=== PATIENT | female | born 1950 | race Caucasian/White ===

== ENCOUNTER 2018-02-28 23:23 | Observation (INO) ==
[2018-02-28] MEDS ORDERED: Famotidine PF Inj 20 MG/2 ML Vial IV.PUSH ONE (23:30)
[2018-02-28] MEDS ORDERED: Dexamethasone Inj 20 MG/5 ML Vial IV.PUSH ONE (23:30)
[2018-02-28] MEDS ORDERED: RESP: Racemic Epinephrine 2.25% 0.5 ML Neb NEB PRN (23:31)
--- NOTE | 2018-02-28 23:36 | ED ---
HPI General Chief complaint: Allergic Reaction Stated complaint: Tongue edema x 2 hrs Time Seen by Provider: 02/28/18 23:29 Source: patient Mode of arrival: ambulatory Limitations: no limitations History of Present Illness HPI narrative: Patient is a 67-year-old female who is having a tongue swelling episodes mostly the left side of her tongue after making a sauce at home. Happened to her once long ago. She does not remember what it was at that time. She said it came down with Benadryl. She took 225 mg Benadryl herself prior to coming to the ER. In the ER she is speaking full sentences did not appear to be in any respiratory distress however her tongue is swollen significantly on the left posterior pharynx uvula completely normal and there is no pallor or edema to the posterior airway immediately she is getting epinephrine 1 and 1000 3 mg as well as Decadron 10 IV racemic epi neb and she will also be getting Pepcid close evaluation whether she needs to be intubated will be closely observed will be admitted to the ICU possibly after intubation or possibly if her airway swelling reverses with medication Onset (ago): hour(s) (2) Related Data Home Medications Medication Instructions Recorded Confirmed alprazolam [Xanax] 0.25 mg PO BID PRN 01/19/18 03/01/18 sertraline 50 mg PO DAILY 01/19/18 03/01/18 Previous Rx's Medication Instructions Recorded amlodipine 5 mg PO DAILY #30 tab 03/02/18 metformin 500 mg PO BID #60 tab 03/02/18 Allergies Allergy/AdvReac Type Severity Reaction Status Date / Time amoxicillin [From Augmentin] Allergy Rash Verified 02/28/18 23:31 clavulanic acid Allergy Rash Verified 02/28/18 23:31 [From Augmentin] Review of Systems ROS: all other systems reviewed are negative [facility] Social History Social History Substance History: No History of Abuse Second Hand Smoke Exposure: Yes Smoking Status: Current every day smoker Tobacco Type: Cigarettes How Often Do You Have a Drink Containing Alcohol: Never Recent Travel in [facility] within the Last 8 Weeks: No Recent Out of Country Travel within the Last 8 Weeks: No Exam Narrative Exam Narrative: GENERAL: no apparent distress SKIN: Warm and dry. HEAD: Atraumatic. Normocephalic. EYES: Pupils equal and round. No scleral icterus. No injection or drainage. ENT: pt has left sided tongue swelling severe but posterior pharynx is completely normal no uvula swelling , no harseness no stridor on ascultation ( pt on lisinopril) NECK: Trachea midline. No JVD. CARDIOVASCULAR: Regular rate and rhythm. RESPIRATORY: No accessory muscle use. Clear to auscultation. Breath sounds equal bilaterally. GASTROINTESTINAL: Abdomen soft, non-tender, nondistended. Hepatic and splenic margins not palpable. MUSCULOSKELETAL: Extremities without clubbing, cyanosis, or edema. No obvious deformities. NEUROLOGICAL: Awake and alert. No obvious cranial nerve deficits. Motor grossly within normal limits. Five out of 5 muscle strength in the arms and legs. Normal speech. PSYCHIATRIC: Appropriate mood and affect; insight and judgment normal. Course Initial Documented Vital Signs Temperature 98.2 F 02/28/18 23:33 Pulse Rate 74 02/28/18 23:33 Respiratory Rate 18 02/28/18 23:33 Blood Pressure 147/64 H 02/28/18 23:33 Pulse Oximetry 97 02/28/18 23:33 Last Documented Vital Signs Temperature 98.1 F 03/02/18 07:00 Pulse Rate 71 03/02/18 08:27 Respiratory Rate 18 03/02/18 08:27 Blood Pressure 123/79 03/02/18 07:00 Pulse Oximetry 96 03/02/18 08:27 Critical Care Time Critical Care Time: Yes Total Critical Care Time: 30 Attestation: pt closely monitored airway and constant re-eval of need for possible intubation , pt tongue severely swollen but q 15 minutes rechecks over 4 hrs and epi , IM and aerosol and solumedrol and pepecid and constant airway monitoring , eventually after 3 hrs tongue swelling receding and posterior pharynx never became swollen , Medical Decision Making MDM Narrative Medical decision making narrative: Patient was closely observed epi Solu-Medrol racemic epi Pepcid Benadryl given immediately evaluation for immediate intubation. Recurrent repeat exams of the posterior pharynx show no signs of uvula swelling no signs of voice change no signs of need for emergent airway patient's tongue is swollen mostly on the left constant reevaluation over 3 hours until the epi Solu-Medrol reverse the swelling and she is safe to be admitted without intubation at this time to the ICU for possible need for future intubation if the swelling reverses it starts to increase again at this time it is decreased and she is safe for admission Medical Screen Exam Complete: Yes Emergency Medical Condition: Yes Differential Diagnosis Differential Diagnosis: allergic reaction to unknown source , vs analphaxis vs tongue local edema swelling , vs vocal chord edema vs airway inflammation . other reaction to allergen or viraus or bacteria Lab Data Result diagrams: 03/02/18 04:31 03/02/18 04:31 Lab Results 03/01/18 03/01/18 03/01/18 Range/Units 05:58 08:40 08:40 CBC w Diff Auto diff final WBC 8.6 (4.0-11.0) th/mm3 RBC 4.37 (4.00-5.30) mil/mm3 Hgb 13.9 (11.6-15.3) gm/dL Hct 40.5 (35.0-46.0) % MCV 92.6 (80.0-100.0) fL MCH 31.9 (27.0-34.0) pg MCHC 34.4 (32.0-36.0) % RDW 12.6 (11.6-17.2) % Plt Count 299 (150-450) th/mm3 MPV 8.1 (7.0-11.0) fL Neut % (Auto) 89.4 H (16.0-70.0) % Lymph % (Auto) 9.7 (9.0-44.0) % [place] % (Auto) 0.3 (0.0-8.0) % Eos % (Auto) 0.0 (0.0-4.0) % Baso % (Auto) 0.6 (0.0-2.0) % Neut # (Auto) 7.7 (1.8-7.7) th/mm3 Lymph # (Auto) 0.8 L (1.0-4.8) th/mm3 [place] # (Auto) 0.0 (0.0-0.9) th/mm3 Eos # (Auto) 0.0 (0.0-0.4) th/mm3 Baso # (Auto) 0.1 (0.0-0.2) th/mm3 WBC Differential . Differential Comment . Sodium 136 (136-145) meq/L Potassium 4.4 (3.5-5.1) meq/L Chloride 101 (98-107) meq/L Carbon Dioxide 26.9 (21.0-32.0) meq/L Anion Gap 8 (5-15) meq/L BUN 22 H (7-18) mg/dL Creatinine 1.10 H (0.50-1.00) mg/dL Estimated GFR 50 L (>89) mL/min POC Glucose 283 H (68-110) mg/dl Random Glucose 303 H (74-106) mg/dL Calcium 8.6 (8.5-10.1) mg/dL Phosphorus 3.1 (2.5-4.9) mg/dL Magnesium 1.8 (1.5-2.5) mg/dL Nasal Screen MRSA (PCR) (Negative) 03/01/18 03/01/18 03/01/18 Range/Units 10:35 11:35 17:17 CBC w Diff WBC (4.0-11.0) th/mm3 RBC (4.00-5.30) mil/mm3 Hgb (11.6-15.3) gm/dL Hct (35.0-46.0) % MCV (80.0-100.0) fL MCH (27.0-34.0) pg MCHC (32.0-36.0) % RDW (11.6-17.2) % Plt Count (150-450) th/mm3 MPV (7.0-11.0) fL Neut % (Auto) (16.0-70.0) % Lymph % (Auto) (9.0-44.0) % [place] % (Auto) (0.0-8.0) % Eos % (Auto) (0.0-4.0) % Baso % (Auto) (0.0-2.0) % Neut # (Auto) (1.8-7.7) th/mm3 Lymph # (Auto) (1.0-4.8) th/mm3 [place] # (Auto) (0.0-0.9) th/mm3 Eos # (Auto) (0.0-0.4) th/mm3 Baso # (Auto) (0.0-0.2) th/mm3 WBC Differential Differential Comment Sodium (136-145) meq/L Potassium (3.5-5.1) meq/L Chloride (98-107) meq/L Carbon Dioxide (21.0-32.0) meq/L Anion Gap (5-15) meq/L BUN (7-18) mg/dL Creatinine (0.50-1.00) mg/dL Estimated GFR (>89) mL/min POC Glucose 263 H 402 H (68-110) mg/dl Random Glucose (74-106) mg/dL Calcium (8.5-10.1) mg/dL Phosphorus (2.5-4.9) mg/dL Magnesium (1.5-2.5) mg/dL Nasal Screen MRSA (PCR) Not detected (Negative) 03/02/18 03/02/18 03/02/18 Range/Units 00:06 04:31 04:31 CBC w Diff WBC 13.7 H D (4.0-11.0) th/mm3 RBC 4.10 (4.00-5.30) mil/mm3 Hgb 13.2 (11.6-15.3) gm/dL Hct 38.6 (35.0-46.0) % MCV 94.3 (80.0-100.0) fL MCH 32.2 (27.0-34.0) pg MCHC 34.1 (32.0-36.0) % RDW 13.4 (11.6-17.2) % Plt Count 269 (150-450) th/mm3 MPV 8.6 (7.0-11.0) fL Neut % (Auto) 88.3 H (16.0-70.0) % Lymph % (Auto) 9.1 (9.0-44.0) % [place] % (Auto) 2.5 (0.0-8.0) % Eos % (Auto) 0.0 (0.0-4.0) % Baso % (Auto) 0.1 (0.0-2.0) % Neut # (Auto) 12.1 H (1.8-7.7) th/mm3 Lymph # (Auto) 1.3 (1.0-4.8) th/mm3 [place] # (Auto) 0.3 (0.0-0.9) th/mm3 Eos # (Auto) 0.0 (0.0-0.4) th/mm3 Baso # (Auto) 0.0 (0.0-0.2) th/mm3 WBC Differential . Differential Comment Auto diff final Sodium 138 (136-145) meq/L Potassium 3.9 (3.5-5.1) meq/L Chloride 103 (98-107) meq/L Carbon Dioxide 26.0 (21.0-32.0) meq/L Anion Gap 9 (5-15) meq/L BUN 17 (7-18) mg/dL Creatinine 0.92 (0.50-1.00) mg/dL Estimated GFR 61 L (>89) mL/min POC Glucose 244 H (68-110) mg/dl Random Glucose 254 H (74-106) mg/dL Calcium 8.9 (8.5-10.1) mg/dL Phosphorus 3.0 (2.5-4.9) mg/dL Magnesium 2.0 (1.5-2.5) mg/dL Nasal Screen MRSA (PCR) (Negative) 03/02/18 Range/Units 05:22 CBC w Diff WBC (4.0-11.0) th/mm3 RBC (4.00-5.30) mil/mm3 Hgb (11.6-15.3) gm/dL Hct (35.0-46.0) % MCV (80.0-100.0) fL MCH (27.0-34.0) pg MCHC (32.0-36.0) % RDW (11.6-17.2) % Plt Count (150-450) th/mm3 MPV (7.0-11.0) fL Neut % (Auto) (16.0-70.0) % Lymph % (Auto) (9.0-44.0) % [place] % (Auto) (0.0-8.0) % Eos % (Auto) (0.0-4.0) % Baso % (Auto) (0.0-2.0) % Neut # (Auto) (1.8-7.7) th/mm3 Lymph # (Auto) (1.0-4.8) th/mm3 [place] # (Auto) (0.0-0.9) th/mm3 Eos # (Auto) (0.0-0.4) th/mm3 Baso # (Auto) (0.0-0.2) th/mm3 WBC Differential Differential Comment Sodium (136-145) meq/L Potassium (3.5-5.1) meq/L Chloride (98-107) meq/L Carbon Dioxide (21.0-32.0) meq/L Anion Gap (5-15) meq/L BUN (7-18) mg/dL Creatinine (0.50-1.00) mg/dL Estimated GFR (>89) mL/min POC Glucose 249 H (68-110) mg/dl Random Glucose (74-106) mg/dL Calcium (8.5-10.1) mg/dL Phosphorus (2.5-4.9) mg/dL Magnesium (1.5-2.5) mg/dL Nasal Screen MRSA (PCR) (Negative) Discharge Plan Discharge Disposition Patient Disposition: 02 Transfer To [facility] [place] Discharge Condition Condition: Good Discharge Details Anticipated Discharge Date: 03/02/18 Physicians Team ED Provider: Jeromy Drummond Primary Care Provider: Tong Pimentel Attending Provider: Natalia Burk Status ED Status: Left Department Discharge Information Discharge Date/Time: 03/01/18 10:03
[2018-03-01] MEDS ORDERED: Dextrose 50% in Water 50 ML Vial IV.PUSH PRN (05:21)
[2018-03-01] MEDS ORDERED: Potassium Phosphate 500 MG Soluble Tablet PO PRN ×2 (05:21)
[2018-03-01] MEDS ORDERED: Potassium Chlor 40 mEq Premix 40 MEQ/100 ML PIGGYBACK IV.SIG PRN ×2 (05:21)
[2018-03-01] MEDS ORDERED: Magnesium Oxide 400 MG Tablet PO PRN (05:21)
[2018-03-01] MEDS ORDERED: Magnesium Sulfate Inj 4 GM in Sodium Chlor 0.9% Inj 92 ML IV.SIG PRN (05:21)
[2018-03-01] MEDS ORDERED: Potassium Phosphate Inj 30 MMOL in Sodium Chlor 0.9% Inj 250 ML IV.SIG PRN (05:21)
[2018-03-01] MEDS ORDERED: Sodium Phosphate Inj 30 MMOL in Sodium Chlor 0.9% Inj 250 ML IV.SIG PRN (05:21)
[2018-03-01] MEDS ORDERED: hydrALAZINE HCl Inj 20 MG/ML Vial IV.PUSH PRN (05:21)
[2018-03-01] MEDS ORDERED: Potassium Chlor 20 mEq Premix 20 MEQ/100 ML PIGGYBACK IV.SIG PRN ×2 (05:21)
[2018-03-01] MEDS ORDERED: Potassium Chloride 25 MEQ Effervescent Tablet PO PRN (05:21)
[2018-03-01] MEDS ORDERED: Magnesium Sulfate Inj 2 GM in Sodium Chlor 0.9% Inj 96 ML IV.SIG PRN (05:21)
[2018-03-01] MEDS ORDERED: Labetalol HCl Inj 100 MG/20 ML Vial IV.PUSH PRN (05:21)
[2018-03-01] MEDS: Enoxaparin Inj 60 MG/0.6 ML Syringe SQ SCH ×2 (05:49→09:18)
[2018-03-01] MEDS: Insulin NovoLIN Regular Correctional Sugar Inj SQ SCH ×3 (06:09→17:20)
[2018-03-01 08:51] LABS: Baso # (Auto) 0.1 th/mm3 (0.0-0.2); Baso % (Auto) 0.6 % (0.0-2.0); Hematocrit 40.5 % (35.0-46.0); Hemoglobin 13.9 gm/dL (11.6-15.3); Lymph # (Auto) 0.8 th/mm3 (1.0-4.8); Lymph % (Auto) 9.7 % (9.0-44.0); Mean Corpuscular HGB Conc 34.4 % (32.0-36.0); Mean Corpuscular Hemoglobin 31.9 pg (27.0-34.0); Mean Corpuscular Volume 92.6 fL (80.0-100.0); Mean Platelet Volume 8.1 fL (7.0-11.0); Mono % (Auto) 0.3 % (0.0-8.0); Neut # (Auto) 7.7 th/mm3 (1.8-7.7); Neut % (Auto) 89.4 % (16.0-70.0); Platelet Count 299 th/mm3 (150-450); Red Blood Count 4.37 mil/mm3 (4.00-5.30); Red Cell Distribution Width 12.6 % (11.6-17.2); White Blood Count 8.6 th/mm3 (4.0-11.0)
[2018-03-01 08:58] LABS: Potassium 4.4 meq/L (3.5-5.1)
[2018-03-01 09:01] LABS: Calcium 8.6 mg/dL (8.5-10.1)
[2018-03-01 09:02] LABS: Carbon Dioxide 26.9 meq/L (21.0-32.0); Magnesium 1.8 mg/dL (1.5-2.5)
[2018-03-01 09:05] LABS: Phosphorus 3.1 mg/dL (2.5-4.9)
[2018-03-01] MEDS: Famotidine PF Inj 20 MG/2 ML Vial IV.PUSH SCH ×2 (09:17→20:55)
--- NOTE | 2018-03-01 12:47 | P.HPCC ---
History of Present Illness Service: Critical care medicine Primary Care Physician: Tong Pimentel MD History of Present Illness: This is a 67-year-old female that was noted last evening to have left- sided tongue swelling. Per her report it occurred prior to her ingestion of her evening medications which included lisinopril, vitamin B complex and multivitamins. This is the first occurrence that was noted has never happened before patient states she has been on lisinopril for greater than 10 years. The patient recalls that she was making some type of tomato based sauce at home and after eating it she noted left-sided tongue swelling and went to the emergency room at [facility]. Her presentation to the emergency department she had no noted respiratory distress. The patient received H1, H2 blockers as well as epinephrine. After receipt of medications, critical care medicine was consulted for possible intubation and the patient was transferred to [facility]. - Diagnosis (1) Angioedema (2) Allergic angioedema (3) Tobacco abuse (4) HTN (hypertension) (5) Anxiety disorder (6) Migraine (7) Irritable bowel syndrome (IBS) Inpatient Certification: I certify that the inpatient services were ordered in accordance with Medicare regulations governing the order. This includes certification that hospital inpatient services are reasonable and necessary and in the case of services not specified as inpatient-only under 42 CFR 419.22(n), that they are appropriately provided as inpatient services in accordance to with the 2-midnight benchmark under 43 CFR 412.3(e) Estimated Total Length of Stay (Days): 3 Plans for Post Hospital Care: Not yet determined Review of Systems All other systems reviewed negative except as stated in [place] - History History Provided By: Patient - Medical History Medical History: Medical History (Last Reviewed 02/28/18 @ 23:35 by David Quezada RN) History of hypertension - Tobacco History Second Hand Smoke Exposure: Yes Tobacco Use In Past 30 Days: Yes Smoking Status: Current every day smoker Tobacco Type: Cigarettes - Alcohol History How Often Do You Have a Drink Containing Alcohol: Never - Substance Use History Substance History: No History of Abuse - Travel History Recent Travel in the [place] Within the Last 8 Weeks: No Recent Travel Out of the Country Within the Last 8 Weeks: No - Immunization History Tetanus Immunization: Unsure Medications and Allergies Active Medications: Active Medications Albuterol (Duoneb Neb (Prn)) 1 ampul NEB Q2HR NEB PRN PRN Reason: WHEEZING Albuterol (Duoneb Neb (Annabel)) 1 ampul NEB Q4HR NEB ANNABEL Last Admin: 03/01/18 07:15 Dose: 1 ampul Chlorhexidine Gluconate (Chlorhexidine 2% Cloth) 3 pack TOPICAL DAILY@0400 ANNABEL Stop: 03/07/18 03:59 Chlorhexidine Gluconate (Chlorhexidine 2% Cloth) 3 pack TOPICAL DAILY@0400 PRN PRN Reason: Extra cloth needed Stop: 03/07/18 03:59 Dexamethasone Sodium Phosphate (Decadron Inj) 4 mg IV.PUSH Q6HR ANNABEL Stop: 03/02/18 05:59 Last Admin: 03/01/18 11:48 Dose: 4 mg Dextrose (D50w Vial) 50 ml IV.PUSH UNSCH PRN PRN Reason: PER HYPOGLYCEMIA PROTOCOL Enoxaparin Sodium (Lovenox Inj) 40 mg SQ DAILY [facility] Last Admin: 03/01/18 09:18 Dose: 40 mg Epinephrine (Racepinephrine 2.25% Neb) 0.5 ml NEB Q3HR NEB PRN PRN Reason: ALLERGIC REACTION Last Admin: 02/28/18 23:37 Dose: 0.5 ml Famotidine (Pepcid Pf Inj) 20 mg IV.PUSH Q12HR ANNABEL Last Admin: 03/01/18 09:17 Dose: 20 mg Glucagon (Glucagon Inj) 1 mg OTHER PRN PRN PRN Reason: for Hypoglycemia Protocol Hydralazine HCl (Apresoline Inj) 10 mg IV.PUSH Q30M PRN PRN Reason: sbp > 160, dbp > 95 Magnesium Sulfate 4 gm/ Sodium (Chloride) 100 mls @ 50 mls/hr IV.SIG UNSCH PRN PRN Reason: For Magnesium 0.9 - 1.1 mg/dL Potassium Chloride (Kcl 40 Meq Premix Inj) 40 meq in 100 mls @ 25 mls/hr IV.SIG Q2H PRN PRN Reason: For Potassium 2.8 - 3.2 mEq/L Potassium Chloride (Kcl 20 Meq Premix Inj) 20 meq in 100 mls @ 50 mls/hr IV.SIG Q2H PRN PRN Reason: For Potassium 3.3 - 3.5 mEq/L Potassium Chloride (Kcl 40 Meq Premix Inj) 40 meq in 100 mls @ 25 mls/hr IV.SIG UNSCH PRN PRN Reason: For Potassium 3.3 - 3.5 mEq/L Potassium Chloride (Kcl 20 Meq Premix Inj) 20 meq in 100 mls @ 50 mls/hr IV.SIG Q2H PRN PRN Reason: For Potassium 2.8 - 3.2 mEq/L Potassium Phosphate 30 mmol/ (Sodium Chloride) 260 mls @ 42 mls/hr IV.SIG UNSCH PRN PRN Reason: SEE LABEL COMMENTS Sodium Phosphate 30 mmol/ (Sodium Chloride) 260 mls @ 42 mls/hr IV.SIG UNSCH PRN PRN Reason: For Phosphorus < 2.5 mg/dL Magnesium Sulfate 2 gm/ Sodium (Chloride) 100 mls @ 50 mls/hr IV.SIG UNSCH PRN PRN Reason: For Magnesium 1.2 - 1.6 mg/dL Insulin Human Regular (Novolin R Correctional Sugar Inj) 0 units SQ Q6HR ANNABEL; Protocol Last Admin: 03/01/18 11:45 Dose: 5 units Labetalol HCl (Trandate Inj) 10 mg IV.PUSH Q20M PRN PRN Reason: sbp > 160 or DBP > 95 Magnesium Oxide (Mag-Ox) 800 mg PO UNSCH PRN PRN Reason: For Magnesium 1.2 - 1.6 mg/dL Ondansetron HCl (Zofran Inj) 4 mg IV.PUSH Q6H PRN PRN Reason: NAUSEA OR VOMITING Potassium Bicarb/Potassium Chloride (K-Lyte Cl Eff) 50 meq PO UNSCH PRN PRN Reason: For Potassium 3.3 - 3.5 mEq/L Potassium Phosphate (K-Phos Original) 2,000 mg PO Q4H PRN PRN Reason: Phosphorus Less Than 2.5 mg/dL Potassium Phosphate (K-Phos Original) 2,000 mg PO UNSCH PRN PRN Reason: SEE LABEL COMMENTS Sodium Chloride (Ns Flush) 2 ml IV.FLUSH UNSCH PRN PRN Reason: FLUSH AFTER USING IV ACCESS Allergies Allergy/AdvReac Type Severity Reaction Status Date / Time amoxicillin [From Augmentin] Allergy Rash Verified 02/28/18 23:31 clavulanic acid Allergy Rash Verified 02/28/18 23:31 [From Augmentin] Home Medications Medication Instructions Recorded Confirmed Type alprazolam [Xanax] 0.25 mg PO BID PRN 01/19/18 03/01/18 History lisinopril 20 mg PO DAILY 01/19/18 03/01/18 History sertraline 50 mg PO DAILY 01/19/18 03/01/18 History Results - Labs CBC & Chem 7: 03/01/18 08:40 03/01/18 08:40 Labs: Short CBC 03/01/18 Range/Units 08:40 WBC 8.6 (4.0-11.0) th/mm3 Hgb 13.9 (11.6-15.3) gm/dL Hct 40.5 (35.0-46.0) % Plt Count 299 (150-450) th/mm3 BMP 03/01/18 08:40 Sodium 136 Potassium 4.4 Chloride 101 Carbon Dioxide 26.9 BUN 22 H Creatinine 1.10 H Calcium 8.6 Exam Vital signs: Vital Signs 02/28/18 23:33 02/28/18 23:37 02/28/18 23:46 Temperature 98.2 F Pulse Rate 74 71 77 Respiratory Rate 18 16 16 Blood Pressure 147/64 H Pulse Oximetry 97 03/01/18 03:15 03/01/18 05:21 03/01/18 05:33 Temperature Pulse Rate 77 69 71 Respiratory Rate 18 16 18 Blood Pressure 136/77 140/73 112/64 Pulse Oximetry 97 97 03/01/18 05:36 03/01/18 07:05 03/01/18 07:16 Temperature 98.2 F Pulse Rate 63 63 Respiratory Rate 18 12 Blood Pressure 131/63 Pulse Oximetry 97 93 L 03/01/18 08:03 03/01/18 10:50 03/01/18 10:55 Temperature 97.9 F 97.9 F Pulse Rate 68 69 69 Respiratory Rate 18 17 17 Blood Pressure 119/72 118/74 118/74 Pulse Oximetry 95 95 95 Intake & Output 02/28/18 03/01/18 03/01/18 18:59 06:59 18:59 Weight 107 kg - Constitutional no acute distress - Routine HEENT Exam Head: Present: normocephalic Eye: Present: EOMI, PERRL, normal accommodation ENT: Present: mucous membranes moist, oropharynx clear (Multiple missing teeth patient wears dentures. No oral pharyngeal edema noted) - Routine Respiratory Exam Comments: Breath sounds clear to auscultation no rales rhonchi or wheezes noted - Routine Cardiovascular Exam Present: RRR, S1, S2 - Routine Abdominal Exam Present: soft, normoactive bowel sounds - Routine Skin Exam Present: intact - Routine Neurological Exam Present: alert, oriented X3, CN II-XII intact, moving all extremities, normal tone, normal speech Caprini VTE Risk Assessment Caprini VTE Risk Assessment: No/Low Risk (score <= 1) Caprini Risk Assessment Model: Point Value = 1 Point Value = 2 Point Value = 3 Point Value = 5 Age 41-60 Minor surgery BMI > 25 kg/m2 Swollen legs Varicose veins or History of unexplained or recurrent spontaneous Oral contraceptives or hormone replacement Sepsis (< 1 month) Serious lung disease, including pneumonia (< 1 month) Abnormal pulmonary function Acute myocardial infarction Congestive heart failure (< 1 month) History of inflammatory bowel disease Medical patient at bed rest Age 61-74 Arthroscopic surgery Major open surgery (> 45 min) Laparoscopic surgery (> 45 min) Malignancy Confined to bed (> 72 hours) Immobilizing plaster cast Central venous access Age >= 75 History of VTE Family history of VTE Factor V Leiden Prothrombin [id number] Lupus anticoagulant Anticardiolipin antibodies Elevated serum homocysteine Heparin-induced thrombocytopenia Other congenital or acquired thrombophilia Stroke (< 1 month) Elective arthroplasty Hip, pelvis, or leg fracture Acute spinal cord injury (< 1 month) Prophylaxis Regimen: Total Risk Factor Score Risk Level Prophylaxis Regimen 0-1 Low Early ambulation 2 Moderate Order ONE of the following: *Sequential Compression Device (SCD) *Heparin 5000 units SQ BID 3-4 Higher Order ONE of the following medications: *Heparin 5000 units SQ TID *Enoxaparin/Lovenox 40 mg SQ daily (WT < 150 kg, CrCl > 30 mL/min) *Enoxaparin/Lovenox 30 mg SQ daily (WT < 150 kg, CrCl > 10-29 mL/min) *Enoxaparin/Lovenox 30 mg SQ BID (WT < 150 kg, CrCl > 30 mL/min) AND/OR *Sequential Compression Device (SCD) 5 or more Highest Order ONE of the following medications: *Heparin 5000 units SQ TID (Preferred with Epidurals) *Enoxaparin/Lovenox 40 mg SQ daily (WT < 150 kg, CrCl > 30 mL/min) *Enoxaparin/Lovenox 30 mg SQ daily (WT < 150 kg, CrCl > 10-29 mL/min) *Enoxaparin/Lovenox 30 mg SQ BID (WT < 150 kg, CrCl > 30 mL/min) AND *Sequential Compression Device (SCD) Assessment and Plan - Problem List (1) Angioedema Code(s): T78.3XXA - Angioneurotic edema, initial encounter Status: Acute (2) Allergic angioedema Code(s): T78.3XXA - Angioneurotic edema, initial encounter Status: Acute (3) Tobacco abuse Code(s): Z72.0 - Tobacco use Status: Acute (4) HTN (hypertension) Code(s): I10 - Essential (primary) hypertension Status: Acute (5) Anxiety disorder Code(s): F41.9 - Anxiety disorder, unspecified Status: Acute (6) Migraine Code(s): G43.909 - Migraine, unspecified, not intractable, without status migrainosus Status: Acute (7) Irritable bowel syndrome (IBS) Code(s): K58.9 - Irritable bowel syndrome without diarrhea Status: Acute - Assessment and Plan Plan: This is a 67-year-old female that after ingesting tomato sauce while cooking, was noted to begin to have left-sided tongue swelling and swelling in the posterior oropharynx, and subsequently taking her medications which included lisinopril, vitamin B complex and multivitamins. Concern for edema presented to the emergency department and transferred to ICU for close observation with the possibility of possible intubation. Plan by systems: Neurologic: Anxiety disorder Patient home medications include sertraline daily and Xanax PRN Will resume when patient is able to take p.o. medication Respiratory: Airway edema-possibly secondary to allergic reaction Patient received H1, H2 blockers as well as 1 mg of epinephrine in the emergency department Patient has been n.p.o. since last evening we will advance to clear liquid diet. Maintain O2 saturation greater than 90 currently on 2 L nasal cannula Wean oxygen to maintain O2 saturation Evaluation of the airway at this time reveals no oropharyngeal edema/erythema, mucositis or exudates at this time Continue to monitor respiratory status but wean off oxygen advance patient to clear liquid diet continue to monitor Cardiovascular: Hypertension Currently the patient is normotensive we will resume home medications when clinically indicated-lisinopril, she has been taking greater than 10 years Renal: -- Strict I/Os FEN/GI: Irritable bowel syndrome History of ulcerative colitis Zofran for nausea Famotidine GI prophylaxis Begin clear liquid diet Heme/ID: Monitor for signs of infection Monitor CBC No indication for antibiotics at this time Endocrine: Hyperglycemia of critical illness -- SSI Prophylaxis: GI Prophylaxis Famotidine DVT Prophylaxis -- SCDs Patient out of bed and can ambulate no indication for pharmacological DVT prophylaxis at this time Lines: Peripheral IVs x2. Central line if indicated Dispo: Level 3 follow-up. Plan transfer to intermediate care unit for close observation for any signs of respiratory distress and possible need for any type of intervention. [facility]
[2018-03-01] MEDS ORDERED: ALPRAZolam 0.25 MG Tablet PO ONE (22:07)
[2018-03-02] MEDS: Insulin NovoLIN Regular Correctional Sugar Inj SQ SCH ×2 (00:13→05:52)
[2018-03-02] MEDS ORDERED: Chlorhexidine Gluconate 2% 1 Pack (2 Cloths) TOPICAL PRN (04:00)
[2018-03-02] MEDS ORDERED: Chlorhexidine Gluconate 2% 1 Pack (2 Cloths) TOPICAL SCH (04:00)
[2018-03-02 05:56] LABS: Baso % (Auto) 0.1 % (0.0-2.0); Hematocrit 38.6 % (35.0-46.0); Hemoglobin 13.2 gm/dL (11.6-15.3); Lymph # (Auto) 1.3 th/mm3 (1.0-4.8); Lymph % (Auto) 9.1 % (9.0-44.0); Mean Corpuscular HGB Conc 34.1 % (32.0-36.0); Mean Corpuscular Hemoglobin 32.2 pg (27.0-34.0); Mean Corpuscular Volume 94.3 fL (80.0-100.0); Mean Platelet Volume 8.6 fL (7.0-11.0); Mono # (Auto) 0.3 th/mm3 (0.0-0.9); Mono % (Auto) 2.5 % (0.0-8.0); Neut # (Auto) 12.1 th/mm3 (1.8-7.7); Neut % (Auto) 88.3 % (16.0-70.0); Platelet Count 269 th/mm3 (150-450); Red Cell Distribution Width 13.4 % (11.6-17.2); White Blood Count 13.7 th/mm3 (4.0-11.0)
[2018-03-02 06:18] LABS: Calcium 8.9 mg/dL (8.5-10.1); Potassium 3.9 meq/L (3.5-5.1)
[2018-03-02 07:39] VITALS: BP 123/79; TEMP 98.1
[2018-03-02 08:28] VITALS: PULSE 71; RESP 18; O2SAT 96
[2018-03-02] MEDS: Famotidine PF Inj 20 MG/2 ML Vial IV.PUSH SCH (08:51)
--- NOTE | 2018-03-02 11:56 | P.DS ---
Date of admission: 03/01/18 05:20 Primary care physician: Tong Pimentel MD Attending physician on discharge: Natalia Burk Anticipated date of discharge: 03/02/18 Brief History from admission: This is a 67-year-old female that was noted last evening to have left- sided tongue swelling. Per her report it occurred prior to her ingestion of her evening medications which included lisinopril, vitamin B complex and multivitamins. This is the first occurrence that was noted has never happened before patient states she has been on lisinopril for greater than 10 years. The patient recalls that she was making some type of tomato based sauce at home and after eating it she noted left-sided tongue swelling and went to the emergency room at [facility]. Her presentation to the emergency department she had no noted respiratory distress. The patient received H1, H2 blockers as well as epinephrine. After receipt of medications, critical care medicine was consulted for possible intubation and the patient was transferred to [facility]. DS: Medications - Discharge Medications Prescriptions: amlodipine 5 mg PO DAILY #30 tab metformin 500 mg PO BID #60 tab DS: Summary Hospital Course: Ms. Painter is a pleasant 67-year-old female with a history of hypertension, diabetes mellitus who was admitted to the hospital due to left- sided tongue swelling. She was originally admitted to [facility]. However, due to concern over respiratory status, patient was transferred to ICU at the [facility]. Patient did not require intubation. She did received H1, H2 blockers as well as epinephrine. She has been on lisinopril for more than 10 years. She also reported that she has had swelling symptoms once before. I discussed with patient that she should avoid lisinopril altogether. Her diabetes is apparently well controlled by lifestyle modifications. She has lost around 20 pounds recently. She does not take any diabetic medications. Per patient her hemoglobin A1c is about 6.5-7.0. I recommend that patient start taking metformin 500 mg twice daily. This will help her to control diabetes as well as possibly lose weight. With regards to blood pressure, her blood pressure is within normal range. Goal blood pressure should be 130/80 since she is diabetic. We will start her on amlodipine 5 mg if her blood pressure is consistently above 130s systolic. If in future, SUNNY inhibitor or ARB medications are indicated due to proteinuria and diabetes, we could consider ARB at least 3-4 weeks from now. However, we should avoid SUNNY inhibitor completely in this patient. I discussed these issues at length with patient. Patient verbalized understanding. She will follow-up with her primary care provider. - Time Spent with Patient Total time spent providing and/or coordinating discharge services: Less than 30 minutes - Quality: VTE Deep Vein Thrombosis/Pulmonary Embolism Present on Admission: No Exam Vital signs: Vital Signs 03/01/18 14:53 03/01/18 15:59 03/01/18 17:39 Temperature 97.7 F 97.7 F Pulse Rate 70 76 70 Respiratory Rate 17 18 17 Blood Pressure 115/72 115/72 Pulse Oximetry 95 95 03/01/18 19:00 03/01/18 20:00 03/01/18 20:02 Temperature 98.2 F Pulse Rate 70 70 70 Respiratory Rate 16 12 Blood Pressure 144/74 H Pulse Oximetry 95 95 03/01/18 23:00 03/01/18 23:47 03/02/18 03:00 Temperature 98.2 F 98.5 F Pulse Rate 72 70 77 Respiratory Rate 16 12 18 Blood Pressure 110/48 L 118/63 Pulse Oximetry 95 93 L 03/02/18 07:00 03/02/18 08:27 Temperature 98.1 F Pulse Rate 78 71 Respiratory Rate 16 18 Blood Pressure 123/79 Pulse Oximetry 97 96 Intake & Output 03/01/18 03/02/18 03/02/18 18:59 06:59 18:59 Intake Total 800 / 800 720 / 720 Output Total 650 / 650 600 / 600 Balance 150 / 150 120 / 120 Weight 103 kg Intake: Oral 800 / 800 720 / 720 Output: Urine 650 / 650 600 / 600 Other: # Voids 2 # Bowel Movements 0 0 Narrative: GENERAL: Alert, NAD. On room air. SKIN: Warm and dry. HEAD: Normocephalic. EYES: No scleral icterus. No injection or drainage. NECK: Supple, trachea midline. No JVD or lymphadenopathy. CARDIOVASCULAR: Regular rate and rhythm without murmurs, gallops, or rubs. RESPIRATORY: Breath sounds equal bilaterally. No accessory muscle use. GASTROINTESTINAL: Abdomen soft, non-tender, nondistended. MUSCULOSKELETAL: No cyanosis, or edema. BACK: Nontender without obvious deformity. No CVA tenderness. Results Procedures completed during hospitalization: None. Labs on day of discharge: Labs from last 24 hours 03/02/18 03/02/18 03/02/18 05:22 04:31 04:31 WBC 13.7 H D RBC 4.10 Hgb 13.2 Hct 38.6 MCV 94.3 MCH 32.2 MCHC 34.1 RDW 13.4 Plt Count 269 MPV 8.6 Neut % (Auto) 88.3 H Lymph % (Auto) 9.1 [place] % (Auto) 2.5 Eos % (Auto) 0.0 Baso % (Auto) 0.1 Neut # (Auto) 12.1 H Lymph # (Auto) 1.3 [place] # (Auto) 0.3 Eos # (Auto) 0.0 Baso # (Auto) 0.0 WBC Differential . Differential Comment Auto diff final Sodium 138 Potassium 3.9 Chloride 103 Carbon Dioxide 26.0 Anion Gap 9 BUN 17 Creatinine 0.92 Estimated GFR 61 L POC Glucose 249 H Random Glucose 254 H Calcium 8.9 Phosphorus 3.0 Magnesium 2.0 Nasal Screen MRSA (PCR) 03/02/18 03/01/18 03/01/18 00:06 17:17 10:35 WBC RBC Hgb Hct MCV MCH MCHC RDW Plt Count MPV Neut % (Auto) Lymph % (Auto) [place] % (Auto) Eos % (Auto) Baso % (Auto) Neut # (Auto) Lymph # (Auto) [place] # (Auto) Eos # (Auto) Baso # (Auto) WBC Differential Differential Comment Sodium Potassium Chloride Carbon Dioxide Anion Gap BUN Creatinine Estimated GFR POC Glucose 244 H 402 H Random Glucose Calcium Phosphorus Magnesium Nasal Screen MRSA (PCR) Not detected Discharge Plan - Discharge Disposition Patient Disposition: 01 Discharge Home - Discharge Condition Condition: Good - Discharge Order Discharge Orders: Discharge Order (Routine); Ordered 03/02/18 Ordered By: Natalia Burk - Discharge Details Anticipated Discharge Date: 03/02/18 - Physicians Team Primary Care Provider: Tong Pimentel Attending Provider: Natalia Burk
== END 2018-03-02 10:30 | disposition home or self-care (01) ==
LOC: PHED 23:23 → INTOOBSV 03-01 05:20 → PHEDA 03-01 05:20 → HCVI 03-01 10:30 → HCPC 03-02 07:20
PROVIDERS: ADMIT Hospitalist; ATTEND Hospitalist
DX: F17.210 Nicotine dependence, cigarettes, uncomplicated; I10 Essential (primary) hypertension; F41.9 Anxiety disorder, unspecified; K58.9 Irritable bowel syndrome, unspecified; E11.65 Type 2 diabetes mellitus with hyperglycemia; G43.909 Migraine, unspecified, not intractable, without status migrainosus; Z79.84 Long term (current) use of oral hypoglycemic drugs; Z88.0 Allergy status to penicillin; T78.3XXA Angioneurotic edema, initial encounter